=== PATIENT | female | born 1990 | race Caucasian/White ===

== ENCOUNTER 2025-07-30 07:44 | Inpatient (IN) ==
[2025-07-30] MEDS ORDERED: OXYTOCIN 30 UNITS/NSS 30 UNITS/500 ML BAG IV PRN (09:22)
[2025-07-30] MEDS ORDERED: ACETAMINOPHEN 500 MG TAB PO PRN (09:22)
[2025-07-30] MEDS ORDERED: CALCIUM CARBONATE 500 MG CHEWABLE TAB PO PRN (09:22)
[2025-07-30] MEDS ORDERED: LIDOCAINE 1% LOCAL 20 ML VIAL INFIL PRN (09:22)
--- NOTE | 2025-07-30 09:36 | History & Physical Report ---
Date of Service July 30, 2025 Assessment & Plan (1) Post-term , 40-42 weeks of gestation: Plan: 34-year-old -0-1-0 at 41 weeks of gestation presenting today for scheduled induction of labor for postdates, Vital signs stable afebrile, GBS negative, removed history of genital HSV, has been on Valtrex heart rate reassuring, Cervix favorable but Green less than 6, Plan to admit, monitor, labs, Cervidil for cervical ripening, discussed what to expect, All questions were answered. (2) Hypothyroidism affecting in third trimester: Admission and Anticipated Discharge Date Admission Date: July 30, 2025 History of Present Illness Primary Care Provider: NO PCP Patient is a 34-year-old -0-1-0 at 41 weeks of gestation who was scheduled for induction of labor for postdates. She has no complaints. She denies contractions, leakage of fluid, vaginal bleeding. She reports good movements. Her has been uncomplicated, GBS negative. She has a history of hypothyroidism and she takes levothyroxine for it. 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 Allergies Allergy/AdvReac Type Severity Reaction Status Date / Time No Known Allergies Allergy Unverified 10/07/11 16:27 Home Medications Medication Instructions Recorded Confirmed Type levothyroxine 50 mcg capsule 50 mcg PO DAILY 07/30/25 07/30/25 History vits no.124-ferrous fum 1 tab PO DAILY 07/30/25 07/30/25 History 27 mg iron-folic acid 800 mcg tablet ( Vitamin) Patient History Medical History Asthma Childhood Surgical History [place] teeth extracted History of tonsillectomy and adenoidectomy Family History Grandfather (Paternal) Myocardial infarction Grandmother (Maternal) Cancer Social History Smoking Status: Never smoker Hx Alcohol Use: No Hx Substance Use: No Preferred Language: Albanian Communication Ability: Effective Visual Impairment: No Limitations [employer] Required: No Beliefs That Will Affect Care: None marital status: Single marital status details: Carlos Perkins Current Living Situation Comment: Lives with Carlos current occupational status: employed current occupation: Teacher Other Information That Helps Us Care for You: No Feels Safe at Home: Yes Assistive Devices: None Review of Systems as per Subjective / HPI Physical Exam Constitutional: WD/WN, vitals as above well developed, well nourished and comfortable Genitourinary: normal external appearance OB Exam Abdomen: + vertex ( confirmed by bedside ultrasound) Manual OB Exam: + cervical dilation 2 cm, + cervical effacement 50% and + station high OB Exam Monitor Tracing: + external uterine monitor used and + category I bedside ultrasound, vertex, placenta anterior, heart rate 140s Results & Data Vital Signs (Past 12 Hours) Vital Signs Temp Pulse Resp BP 07/30/25 08:04 36.5 C 96 H 20 118/77 07/30/25 07:57 36.5 C 96 H 20 118/77
[2025-07-30] MEDS: DINOPROSTONE 10 MG INSERT PV ONE (10:04)
[2025-07-30 10:07] LABS: Hematocrit (blood only) 35.6 % (37.0-47.0); Hemoglobin 12.4 g/dl (12.0-16.0); Mean Corpuscular Hemoglobin 31.0 pg (25.0-34.0); Mean Corpuscular Volume 89.0 fL (80.0-100.0); Platelet Count 230 K/uL (130-400); RDW Standard Deviation 43.7 fL (36.4-46.3); Red Blood Count 4.00 M/uL (4.20-5.40); White Blood Count 10.56 K/ul (4.8-10.8)
[2025-07-30] MEDS: LACTATED RINGER'S 1,000 ML IV PRN (13:18)
--- NOTE | 2025-07-30 13:28 | Obstetrical Progress Note ---
Date of Service July 30, 2025 Assessment & Plan Admission and Anticipated Discharge Date Admission Date: July 30, 2025 Subjective patient had SROM at around 12 noon, confirmed by her nurse at 12:10 PM. It has been clear fluid. Patient started to have back pain radiating to her left lower abdomen. Not sure if they are contractions and pain are not. Pain level is 5-6 out of 10. She reports good movements. heart rate had been category 1, toco shows mild uterine contractions, Vaginal exam, Cervidil is removed, cervix is 3 to 4 cm dilated, 50%, there is a tight bulging bag, used hook to open, clear fluids, heart rate head deceleration to 70s while patient was in her back, recovered on her right side. Pulse OX was attached the patient and her pulse is around 70s, that might be a maternal heart rate. Continue to monitor closely, Start oxytocin per protocol, Patient plans to get epidural but not now, all questions were answered. Results & Data Vital Signs (Past 12 Hours) Vital Signs Temp Pulse Resp BP Pulse Ox 07/30/25 13:22 78 99 07/30/25 13:17 38 L 98 07/30/25 10:59 36.5 C 77 20 124/61 07/30/25 08:04 36.5 C 96 H 20 118/77 07/30/25 07:57 36.5 C 96 H 20 118/77
[2025-07-30] MEDS: OXYTOCIN 30 UNITS/NSS 30 UNITS/500 ML BAG IV PRN (14:38)
[2025-07-30] MEDS ORDERED: LIDOCAINE 2% MPF LOCAL 5 ML VIAL EPI PRN (15:47)
[2025-07-30] MEDS ORDERED: diphenhydrAMINE 50 MG/ML VIAL IV PRN (15:47)
[2025-07-30] MEDS ORDERED: ONDANSETRON INJ 2 MG/ML 2 ML VIAL IV PRN ×2 (15:47→23:20)
[2025-07-30] MEDS ORDERED: fentANYL 2 MCG/ML BUPIVacaine 0.125%-NSS 100ML BAG EPI PRN (15:47)
[2025-07-30] MEDS ORDERED: ROPIVACAINE 0.5% PF 5 MG/ML 20 ML VIAL EPI PRN (15:47)
[2025-07-30] MEDS ORDERED: NALBUPHINE HCL INJ 10 MG/ML AMP IV PRN (15:47)
[2025-07-30] MEDS ORDERED: NALOXONE HCL 1 MG in SODIUM CHLORIDE 0.9% 1,000 ML IV PRN ×2 (15:47→23:20)
[2025-07-30] MEDS ORDERED: NALOXONE HCL 0.4 MG/1 ML VIAL/CARP IV PRN ×2 (15:47→23:20)
[2025-07-30] MEDS ORDERED: SODIUM CHLORIDE 0.9% PF INJ 10 ML VIAL EPI PRN (15:47)
[2025-07-30] MEDS ORDERED: BUPIVACAINE 0.25% PF 30 ML VIAL EPI PRN (15:47)
--- NOTE | 2025-07-30 15:49 | Anesthesiology Consultation ---
Date of Service July 30, 2025 Assessment & Plan (1) Encounter for pre-operative examination: Chart Review Chart Review: Patient NOT seen in Pre Admission Testing and Acceptable Risk for Labor Epidural Consults Requested none History Height/Weight Height: 5 ft 5 in Weight: 98.43 kg Allergies Allergy/AdvReac Type Severity Reaction Status Date / Time No Known Allergies Allergy Unverified 10/07/11 16:27 Medications Home Medications Medication Instructions Recorded Confirmed Last Taken levothyroxine 50 mcg capsule 50 mcg PO DAILY 07/30/25 07/30/25 07/30/25 vits no.124-ferrous fum 1 tab PO DAILY 07/30/25 07/30/25 07/30/25 27 mg iron-folic acid 800 mcg tablet ( Vitamin) Active Medications Generic Name Dose Route Start Last Admin Trade Name Freq PRN Reason Stop Dose Admin Lactated Ringer's 1,000 mls @ 150 mls/hr 07/30/25 09:22 07/30/25 15:32 Lr IV 08/01/25 09:21 999 mls/hr .[id number] PRN Administration L&D Protocol Protocol Oxytocin 30 units in 500 mls @ 2 mls/hr 07/30/25 13:04 07/30/25 14:38 Pitocin 30 Units/Nss IV 08/01/25 13:03 0.12 units/hr .Q24H PRN 2 mls/hr Labor Induction/Augmentation Administration Protocol 0.12 UNITS/HR Past Medical History Medical History (Updated 07/30/25 @ 15:49 by Cristiano Madrigal MD) Encounter for pre-operative examination Asthma Childhood Past Family History Family History Grandfather (Paternal) Myocardial infarction Grandmother (Maternal) Cancer Past Surgical History Surgical History [place] teeth extracted History of tonsillectomy and adenoidectomy Past Anesthesia History No Hx of Anesthesia Complications and No Family Hx of Anesthesia Complications Social History Smoking Status: Never smoker Hx Alcohol Use: No Hx Substance Use: No Physical Exam Vital Signs Last Vital Signs Temp 36.8 C 07/30/25 15:19 Pulse 75 07/30/25 16:10 Resp 20 07/30/25 15:19 BP 129/69 07/30/25 16:10 Pulse Ox 100 07/30/25 16:08 Testing Laboratory Results 07/30/25 09:33 Blood Type O Positive 07/30/25 09:33 Antibody Screen NEGATIVE 07/30/25 09:33
[2025-07-30] MEDS: BUPIVACAINE 0.25% PF 30 ML VIAL ONE (16:12)
[2025-07-30] MEDS: LIDOCAINE 2%/EPINEPHRINE 1:200,000 20 ML PF ONE (16:13)
[2025-07-30] MEDS: fentANYL 2 MCG/ML BUPIVacaine 0.125%-NSS 100ML BAG ONE (16:14)
[2025-07-30] MEDS: SODIUM CHLORIDE 0.9% PF INJ 10 ML VIAL ONE (16:40)
[2025-07-30] MEDS: TERBUTALINE SULFATE 1 MG/ML VIAL ONE (17:47)
--- NOTE | 2025-07-30 17:54 | Obstetrical Progress Note ---
Date of Service July 30, 2025 Assessment & Plan Admission and Anticipated Discharge Date Admission Date: July 30, 2025 Subjective Patient received epidural and has been comfortable. heart rate had been category 1 all day with good accelerations and moderate variability, no decelerations. Had 2 variable decelerations and went to see her. We put her on her back and checked her cervix which was 6 to 7 cm, 70% effaced and head is -1 station. And we were able to place a Chavez catheter and heart rate had prolonged deceleration to the 70s. oxytocin was stopped, IV fluid bolus was started and nasal oxygen was given. We also get her single dose of terbutaline. Unable to recover on the sides, Chavez catheter was inserted and FSE was placed. We then turned her to her knee-chest and heart rate started to improve came up to 120s and 130s to 140s with good good variability and accelerations category 1. We then turned her back and I did bedside ultrasound confirmed a heart rate to be 140s. Chavez catheter draining 1000 mL of clear urine. I rechecked her cervix and it is 7 cm, 80%, head is 0 station. Anesthesiology was at the nursing station during this encounter. Continue to monitor closely. Results & Data Vital Signs (Past 12 Hours) Vital Signs Temp Pulse Resp BP Pulse Ox 07/30/25 17:49 85 108/58 L 07/30/25 17:48 71 98 07/30/25 17:40 77 87 L 07/30/25 17:38 66 100 07/30/25 17:33 71 100 07/30/25 17:32 71 91 07/30/25 17:28 60 96 07/30/25 17:26 58 L 92 07/30/25 17:25 75 107/56 L 07/30/25 17:23 89 99 07/30/25 17:21 72 94 07/30/25 17:18 75 98 07/30/25 17:13 78 97 07/30/25 17:10 75 106/53 L 07/30/25 17:08 67 99 07/30/25 17:03 67 97 07/30/25 17:00 20 07/30/25 17:00 20 07/30/25 16:58 64 100 07/30/25 16:53 66 98 07/30/25 16:51 36.8 C 67 20 101/55 L 07/30/25 16:48 65 98 07/30/25 16:47 67 81/51 L 07/30/25 16:43 69 96/49 L 99 07/30/25 16:38 68 98 07/30/25 16:37 72 114/57 L 07/30/25 16:33 72 98 07/30/25 16:30 72 99/55 L 07/30/25 16:28 98 07/30/25 16:28 74 07/30/25 16:28 92 H 101/64 07/30/25 16:26 96/53 L 07/30/25 16:24 85 96/51 L 07/30/25 16:23 78 97 07/30/25 16:22 93 H 107/61 07/30/25 16:20 80 98/56 L 07/30/25 16:18 99 07/30/25 16:18 83 07/30/25 16:18 85 94/53 L 07/30/25 16:16 77 101/58 L 07/30/25 16:14 82 94/50 L 07/30/25 16:13 77 99 07/30/25 16:12 81 102/53 L 07/30/25 16:10 75 129/69 07/30/25 16:08 68 100 07/30/25 16:07 71 123/90 07/30/25 16:03 70 99 07/30/25 16:02 70 146/82 H 07/30/25 15:58 67 100 07/30/25 15:55 78 88 L 07/30/25 15:53 71 100 07/30/25 15:48 53 L 99 07/30/25 15:43 70 97 07/30/25 15:38 66 98 07/30/25 15:33 67 99 07/30/25 15:28 59 L 98 07/30/25 15:23 62 99 07/30/25 15:19 36.8 C 70 20 119/75 07/30/25 15:18 68 100 07/30/25 15:03 67 97 07/30/25 14:58 65 98 07/30/25 14:53 68 98 07/30/25 14:48 70 98 07/30/25 14:43 68 98 07/30/25 14:41 36.8 C 65 20 140/75 07/30/25 14:38 69 98 07/30/25 14:32 68 98 07/30/25 14:27 64 99 07/30/25 14:22 66 98 07/30/25 14:17 69 98 07/30/25 14:12 64 99 07/30/25 14:07 62 98 07/30/25 14:02 69 99 07/30/25 13:57 72 100 07/30/25 13:42 71 97 07/30/25 13:37 63 98 07/30/25 13:33 72 94 07/30/25 13:32 64 98 07/30/25 13:27 65 99 07/30/25 13:25 18 07/30/25 13:25 36.8 C 18 07/30/25 13:22 78 99 07/30/25 13:17 38 L 98 07/30/25 10:59 36.5 C 77 20 124/61 07/30/25 08:04 36.5 C 96 H 20 118/77 07/30/25 07:57 36.5 C 96 H 20 118/77
[2025-07-30] MEDS: SODIUM CHLORIDE 0.9% PF INJ 10 ML VIAL EPI STA (18:12)
[2025-07-30] MEDS: BUPIVACAINE 0.25% PF 30 ML VIAL EPI STA (18:12)
[2025-07-30] MEDS: LIDOCAINE 2%/EPINEPHRINE 1:200,000 20 ML PF EPI STA (18:12)
--- NOTE | 2025-07-30 21:04 | Obstetrical Progress Note ---
Date of Service July 30, 2025 Assessment & Plan Admission and Anticipated Discharge Date Admission Date: July 30, 2025 Subjective FHR had patrick categ I Had deceleration to 70's for about 3-4 min with spontaneous recovery VE: 10/ 100%/ +2 Started pushing with contractions, FHR staying at 150's, scalp visible with pushings Continue to monitor closely Results & Data Vital Signs (Past 12 Hours) Vital Signs Temp Pulse Resp BP Pulse Ox 07/30/25 20:58 86 95 07/30/25 20:54 100 H 130/71 07/30/25 20:53 100 H 99 07/30/25 20:48 84 99 07/30/25 20:43 89 99 07/30/25 20:42 99 H 92 07/30/25 20:39 80 129/74 07/30/25 20:38 69 99 07/30/25 20:33 74 96 07/30/25 20:30 18 07/30/25 20:30 18 07/30/25 20:28 83 96 07/30/25 20:24 80 93 07/30/25 20:23 75 97 07/30/25 20:18 78 99 07/30/25 20:17 84 93 07/30/25 20:13 65 99 07/30/25 20:09 76 133/73 07/30/25 20:08 71 98 07/30/25 20:03 76 99 07/30/25 20:00 20 07/30/25 20:00 20 07/30/25 19:58 77 99 07/30/25 19:54 75 134/75 07/30/25 19:53 99 07/30/25 19:53 71 07/30/25 19:53 76 90 07/30/25 19:48 79 98 07/30/25 19:43 79 93 07/30/25 19:39 92 H 115/59 L 07/30/25 19:38 86 96 07/30/25 19:33 79 95 07/30/25 19:32 81 92 07/30/25 19:30 18 07/30/25 19:30 18 07/30/25 19:28 74 99 07/30/25 19:24 82 99/59 L 07/30/25 19:23 66 98 07/30/25 19:18 79 99 07/30/25 19:16 76 94 07/30/25 19:15 37.6 C H 18 07/30/25 19:13 92 H 94 07/30/25 19:08 94 H 99/54 L 98 07/30/25 19:03 83 98 07/30/25 19:02 89 94 07/30/25 19:00 18 07/30/25 19:00 37.6 C H 18 07/30/25 18:58 81 98 07/30/25 18:55 93 H 98/57 L 07/30/25 18:53 73 98 07/30/25 18:48 75 100 07/30/25 18:44 83 89 L 07/30/25 18:43 77 97 07/30/25 18:39 83 101/57 L 07/30/25 18:38 80 98 07/30/25 18:33 74 99 07/30/25 18:29 85 91 07/30/25 18:28 72 99 07/30/25 18:24 88 20 102/58 L 07/30/25 18:23 77 98 07/30/25 18:18 88 L 07/30/25 18:18 75 07/30/25 18:18 76 93 07/30/25 18:13 88 98 07/30/25 18:09 83 20 105/58 L 07/30/25 18:08 72 100 07/30/25 18:04 76 94 07/30/25 18:03 74 97 07/30/25 17:58 79 94 07/30/25 17:54 81 20 103/56 L 07/30/25 17:53 85 100 07/30/25 17:49 85 108/58 L 07/30/25 17:48 71 98 07/30/25 17:40 77 87 L 07/30/25 17:38 66 100 07/30/25 17:33 71 100 07/30/25 17:32 71 91 07/30/25 17:28 60 96 07/30/25 17:26 58 L 92 07/30/25 17:25 75 18 107/56 L 07/30/25 17:23 89 99 07/30/25 17:21 72 94 07/30/25 17:18 75 98 07/30/25 17:13 78 97 07/30/25 17:10 75 106/53 L 07/30/25 17:08 67 99 07/30/25 17:03 67 97 07/30/25 17:00 20 07/30/25 17:00 20 07/30/25 16:58 64 100 07/30/25 16:53 66 98 07/30/25 16:51 36.8 C 67 20 101/55 L 07/30/25 16:48 65 98 07/30/25 16:47 67 18 81/51 L 07/30/25 16:43 69 96/49 L 99 07/30/25 16:38 68 98 07/30/25 16:37 72 18 114/57 L 07/30/25 16:33 72 98 07/30/25 16:30 72 18 99/55 L 07/30/25 16:28 98 07/30/25 16:28 74 07/30/25 16:28 92 H 18 101/64 07/30/25 16:26 96/53 L 07/30/25 16:24 85 18 96/51 L 07/30/25 16:23 78 97 07/30/25 16:22 93 H 18 107/61 07/30/25 16:20 80 18 98/56 L 07/30/25 16:18 99 07/30/25 16:18 83 07/30/25 16:18 85 18 94/53 L 07/30/25 16:16 77 18 101/58 L 07/30/25 16:14 82 18 94/50 L 07/30/25 16:13 77 99 07/30/25 16:12 81 102/53 L 07/30/25 16:10 75 129/69 07/30/25 16:08 68 100 07/30/25 16:07 71 123/90 07/30/25 16:03 70 99 07/30/25 16:02 70 146/82 H 07/30/25 15:58 67 100 07/30/25 15:55 78 88 L 07/30/25 15:53 71 100 07/30/25 15:48 53 L 99 07/30/25 15:43 70 97 07/30/25 15:38 66 98 07/30/25 15:33 67 99 07/30/25 15:28 59 L 98 07/30/25 15:23 62 99 07/30/25 15:19 36.8 C 70 20 119/75 07/30/25 15:18 68 100 07/30/25 15:03 67 97 07/30/25 14:58 65 98 07/30/25 14:53 68 98 07/30/25 14:48 70 98 07/30/25 14:43 68 98 07/30/25 14:41 36.8 C 65 20 140/75 07/30/25 14:38 69 98 07/30/25 14:32 68 98 07/30/25 14:27 64 99 07/30/25 14:22 66 98 07/30/25 14:17 69 98 07/30/25 14:12 64 99 07/30/25 14:07 62 98 07/30/25 14:02 69 99 07/30/25 13:57 72 100 07/30/25 13:42 71 97 07/30/25 13:37 63 98 07/30/25 13:33 72 94 07/30/25 13:32 64 98 07/30/25 13:27 65 99 07/30/25 13:25 18 07/30/25 13:25 36.8 C 18 07/30/25 13:22 78 99 07/30/25 13:17 38 L 98 07/30/25 10:59 36.5 C 77 20 124/61
[2025-07-30] MEDS ORDERED: DEXAMETHASONE SOD INJ 4 MG/ML VIAL ONE (22:33)
[2025-07-30] MEDS ORDERED: PHENYLEPHRINE 100MCG/ML 5ML SYR ONE (22:33)
[2025-07-30] MEDS ORDERED: ONDANSETRON INJ 2 MG/ML 2 ML VIAL ONE (22:33)
[2025-07-30] MEDS ORDERED: PHENYLEPHRINE HCL 25 MG/250 ML NSS IV ONE (22:33)
[2025-07-30] MEDS ORDERED: LIDOCAINE 2%/EPINEPHRINE 1:200,000 20 ML PF ONE (22:33)
--- NOTE | 2025-07-30 22:36 | Obstetrical Progress Note ---
Date of Service July 30, 2025 Assessment & Plan Admission and Anticipated Discharge Date Admission Date: July 30, 2025 Subjective patient has been pushing for about 1/2 hours. She wanted to avoid unless it is absolutely needed. heart rate reviewed and category 1 to category 2. We put the patient on knee-chest position and heart rate was category 1 there she pushed her for about half an hour and then turned on to her back. head distillates +2 station with no change. Started having variable D cells with each contractions now more deeper. Category 2 strip. Recommended delivery with . Patient understands C section is a major surgery, with risks including but not limited to bleeding , infection, injury to surrounding organs like bowels, bladder, ureters, adhesions, scarring, wound infection, blood cloths in legs/ lungs, longer recovery. All questions were answered. She signed an informed consent. Results & Data Vital Signs (Past 12 Hours) Vital Signs Temp Pulse Resp BP Pulse Ox 07/30/25 22:31 92 H 100 07/30/25 22:26 89 100 07/30/25 22:21 88 L 07/30/25 22:21 99 H 07/30/25 22:21 99 H 88 L 07/30/25 22:16 107 H 98 07/30/25 22:11 79 100 07/30/25 22:10 70 93 07/30/25 22:05 89 99 07/30/25 22:03 88 89 L 07/30/25 22:00 71 100 07/30/25 21:55 75 100 07/30/25 21:52 70 93 07/30/25 21:50 80 100 07/30/25 21:47 86 80 L 07/30/25 21:45 84 98 07/30/25 21:41 75 92 07/30/25 21:40 89 100 07/30/25 21:33 55 L 99 07/30/25 21:32 70 91 07/30/25 21:28 80 96 07/30/25 21:25 72 115/56 L 92 07/30/25 21:23 74 98 07/30/25 21:19 74 93 07/30/25 21:18 74 96 07/30/25 21:13 72 100 07/30/25 21:10 82 92 07/30/25 21:09 83 112/56 L 07/30/25 21:08 74 99 07/30/25 21:05 22 07/30/25 21:05 22 07/30/25 21:04 71 91 07/30/25 21:03 75 99 07/30/25 20:58 86 95 07/30/25 20:54 100 H 130/71 07/30/25 20:53 100 H 99 07/30/25 20:48 84 99 07/30/25 20:43 89 99 07/30/25 20:42 99 H 92 07/30/25 20:39 80 129/74 07/30/25 20:38 69 99 07/30/25 20:33 74 96 07/30/25 20:30 18 07/30/25 20:30 18 07/30/25 20:28 83 96 07/30/25 20:24 80 93 07/30/25 20:23 75 97 07/30/25 20:18 78 99 07/30/25 20:17 84 93 07/30/25 20:13 65 99 07/30/25 20:09 76 133/73 07/30/25 20:08 71 98 07/30/25 20:03 76 99 07/30/25 20:00 20 07/30/25 20:00 20 07/30/25 19:58 77 99 07/30/25 19:54 75 134/75 07/30/25 19:53 99 07/30/25 19:53 71 07/30/25 19:53 76 90 07/30/25 19:48 79 98 07/30/25 19:43 79 93 07/30/25 19:39 92 H 115/59 L 07/30/25 19:38 86 96 07/30/25 19:33 79 95 07/30/25 19:32 81 92 07/30/25 19:30 18 07/30/25 19:30 18 07/30/25 19:28 74 99 07/30/25 19:24 82 99/59 L 07/30/25 19:23 66 98 07/30/25 19:18 79 99 07/30/25 19:16 76 94 07/30/25 19:15 37.6 C H 18 07/30/25 19:13 92 H 94 07/30/25 19:08 94 H 99/54 L 98 07/30/25 19:03 83 98 07/30/25 19:02 89 94 07/30/25 19:00 18 07/30/25 19:00 37.6 C H 18 07/30/25 18:58 81 98 07/30/25 18:55 93 H 98/57 L 07/30/25 18:53 73 98 07/30/25 18:48 75 100 07/30/25 18:44 83 89 L 07/30/25 18:43 77 97 07/30/25 18:39 83 101/57 L 07/30/25 18:38 80 98 07/30/25 18:33 74 99 07/30/25 18:29 85 91 07/30/25 18:28 72 99 07/30/25 18:24 88 20 102/58 L 07/30/25 18:23 77 98 07/30/25 18:18 88 L 07/30/25 18:18 75 07/30/25 18:18 76 93 07/30/25 18:13 88 98 07/30/25 18:09 83 20 105/58 L 07/30/25 18:08 72 100 07/30/25 18:04 76 94 07/30/25 18:03 74 97 07/30/25 17:58 79 94 07/30/25 17:54 81 20 103/56 L 07/30/25 17:53 85 100 07/30/25 17:49 85 108/58 L 07/30/25 17:48 71 98 07/30/25 17:40 77 87 L 07/30/25 17:38 66 100 07/30/25 17:33 71 100 07/30/25 17:32 71 91 07/30/25 17:28 60 96 07/30/25 17:26 58 L 92 07/30/25 17:25 75 18 107/56 L 07/30/25 17:23 89 99 07/30/25 17:21 72 94 07/30/25 17:18 75 98 07/30/25 17:13 78 97 07/30/25 17:10 75 106/53 L 07/30/25 17:08 67 99 07/30/25 17:03 67 97 07/30/25 17:00 20 07/30/25 17:00 20 07/30/25 16:58 64 100 07/30/25 16:53 66 98 07/30/25 16:51 36.8 C 67 20 101/55 L 07/30/25 16:48 65 98 07/30/25 16:47 67 18 81/51 L 07/30/25 16:43 69 96/49 L 99 07/30/25 16:38 68 98 07/30/25 16:37 72 18 114/57 L 07/30/25 16:33 72 98 07/30/25 16:30 72 18 99/55 L 07/30/25 16:28 98 07/30/25 16:28 74 07/30/25 16:28 92 H 18 101/64 07/30/25 16:26 96/53 L 07/30/25 16:24 85 18 96/51 L 07/30/25 16:23 78 97 07/30/25 16:22 93 H 18 107/61 07/30/25 16:20 80 18 98/56 L 07/30/25 16:18 99 07/30/25 16:18 83 07/30/25 16:18 85 18 94/53 L 07/30/25 16:16 77 18 101/58 L 07/30/25 16:14 82 18 94/50 L 07/30/25 16:13 77 99 07/30/25 16:12 81 102/53 L 07/30/25 16:10 75 129/69 07/30/25 16:08 68 100 07/30/25 16:07 71 123/90 07/30/25 16:03 70 99 07/30/25 16:02 70 146/82 H 07/30/25 15:58 67 100 07/30/25 15:55 78 88 L 07/30/25 15:53 71 100 07/30/25 15:48 53 L 99 07/30/25 15:43 70 97 07/30/25 15:38 66 98 07/30/25 15:33 67 99 07/30/25 15:28 59 L 98 07/30/25 15:23 62 99 07/30/25 15:19 36.8 C 70 20 119/75 07/30/25 15:18 68 100 07/30/25 15:03 67 97 07/30/25 14:58 65 98 07/30/25 14:53 68 98 07/30/25 14:48 70 98 07/30/25 14:43 68 98 07/30/25 14:41 36.8 C 65 20 140/75 07/30/25 14:38 69 98 07/30/25 14:32 68 98 07/30/25 14:27 64 99 07/30/25 14:22 66 98 07/30/25 14:17 69 98 07/30/25 14:12 64 99 07/30/25 14:07 62 98 07/30/25 14:02 69 99 07/30/25 13:57 72 100 07/30/25 13:42 71 97 07/30/25 13:37 63 98 07/30/25 13:33 72 94 07/30/25 13:32 64 98 07/30/25 13:27 65 99 07/30/25 13:25 18 07/30/25 13:25 36.8 C 18 07/30/25 13:22 78 99 07/30/25 13:17 38 L 98 07/30/25 10:59 36.5 C 77 20 124/61
[2025-07-30] MEDS ORDERED: MoRPHine SULFATE PF 1 MG/ML 10 ML AMP/VIAL ONE (22:38)
[2025-07-30] MEDS: CITRIC ACID/SODIUM CITRATE 15 ML UDC PO SCH (22:43)
[2025-07-30] MEDS: ceFAZolin 3000MG 3,000 MG/72.5 ML BAG IV SCH (22:45)
[2025-07-30] MEDS: TERBUTALINE SULFATE 1 MG/ML VIAL SQ ONE (22:45)
[2025-07-30] MEDS ORDERED: LACTATED RINGER'S 500 ML IV PRN (23:20)
[2025-07-30] MEDS ORDERED: HYDROmorphone INJ 0.5 MG/0.5 ML SYR IV PRN (23:20)
[2025-07-30] MEDS ORDERED: PROMETHAZINE 6.25 MG/50.25 ML BAG IV PRN (23:20)
[2025-07-30] MEDS ORDERED: NALOXONE HCL 0.08 MG in SYRINGE 1.8 ML IV PRN (23:20)
[2025-07-30 23:30] LABS: Hematocrit (blood only) 36.1 % (37.0-47.0); Hemoglobin 12.7 g/dl (12.0-16.0); Mean Corpuscular Hemoglobin 31.4 pg (25.0-34.0); Mean Corpuscular Volume 89.4 fL (80.0-100.0); Platelet Count 244 K/uL (130-400); RDW Standard Deviation 43.7 fL (36.4-46.3); Red Blood Count 4.04 M/uL (4.20-5.40); White Blood Count 21.34 K/ul (4.8-10.8)
[2025-07-30] MEDS ORDERED: NO NARCOTICS OR SEDATIVES SCH (23:30)
[2025-07-30] MEDS ORDERED: DC INTRASPINAL MORPHINE SCH (23:30)
[2025-07-30] MEDS ORDERED: LACTATED RINGER'S 1,000 ML IV SCH (23:45)
[2025-07-31] MEDS ORDERED: MEASLES, MUMPS & RUBELLA VIRUS VACCINE (MMR) 0.5ML VIAL SQ ONE (00:04)
[2025-07-31] MEDS ORDERED: BENZOCAINE 20% SPRY 85 APPLN/85 GM CAN EXT PRN (00:04)
[2025-07-31] MEDS ORDERED: HYDROCORTISONE ACETATE 25 MG SUPP PR PRN (00:04)
[2025-07-31] MEDS ORDERED: CALCIUM CARBONATE 500 MG CHEWABLE TAB PO PRN (00:04)
[2025-07-31] MEDS ORDERED: SENNA 8.6 MG TAB PO PRN (00:04)
[2025-07-31] MEDS ORDERED: MAGNESIUM HYDROXIDE SUSP 30 ML UDC PO PRN (00:04)
[2025-07-31] MEDS ORDERED: DIPHTHER/TETAN/PERTUS Vaccine (Tdap, Adol/Adult) 0.5mL IM ONE (00:04)
--- NOTE | 2025-07-31 00:10 | Operative Report ---
Post Operative Report Pre & Post Diagnosis Operation Date: 07/30/25 22:45 Preop diagnosis: 1) arrest of descent in second phase of labor, 2) category 2 strip I identified the patient and participated in the time-out.: Yes Procedure Operation Date: 07/30/25 22:45 for primary low-transverse with financial skin incision Surgeon Cony Miller MD Bank Consultant Irene Sweeney RN Estimated Blood Loss 389 Findings Consistent with Post-Op Diagnosis Baby was a viable male , delivered at 23:03 on July 30, 2025 and cephalic presentAtion, direct occiput posterior position, Apgars 9 and 9, weight was 3510 g maternal findings, normal uterus, fallopian tubes and ovaries Specimens placenta, cord Drains Chavez catheter drained 50 mL urine Anesthesia Type Labor Epidural Complications none Indications patient is a 34-year-old G2, P0010 at 41 weeks of gestation who was admitted on July 30 morning for induction of labor for postdates. She has received Cervidil for cervical ripening and SROM at noon. Cervidil was removed and she was started on oxytocin per protocol. She has not received epidural for pain and was comfortable. heart rate was category 1 and then had a prolonged deceleration in the afternoon when her cervix was 6-7 cm, head was -1 station. It was recovered with position changes IV fluid hydration and stopping Pitocin. heart rate had been category 1 after that until patient started pushing. Started to have deep variable decelerations, category 2 strip removed from delivery. Despite pushing with good efforts for about 1-1/2 hour, no progress was noted in head Station. Decision was made to proceed with primary C- section. Description of Procedure Patient was taken to operating room where labor epidural anesthesia was check to be adequate. She was placed in dorsal supine position with a leftward tilt. She was prepared and draped in usual sterile fashion. A Pfannenstiel skin incision was made and carried through to the underlying layer of fascia with the Bovie. Fascia was incised in the midline and incision was extended laterally with the help of Bobo scissors. Then the upper aspect of the fascial incision was grasped with 2 Ar clamps elevated the underlying rectus muscles were dissected off sharply with Bobo scissors. Same thing was done on the lower incision. Then the muscles were in the midline, peritoneum was identified grasped with 2 pickups and entered sharply with Metzenbaum scissors. Peritoneal incision was extended superior and inferiorly with good visualization of the bladder. The bladder blade was inserted. Vesicouterine peritoneum was identified, grasped with pickups and entered sharply with Metzenbaum scissors, bladder flap was created digitally and bladder blade was reinserted. Uterus was incised in transverse fashion, incision was extended laterally, membranes were ruptured and clear fluid was obtained. baby's head was in direct occipitoposterior position. Baby's head was Brought to incision and delivered without difficulty, followed by shoulders and body with minimal traction without difficulty. Mouth and nose were suctioned, he was dried on the field he was vigorously crying and moving. The cord was clampedx2 and cut at 1 minute delay and then the was handed off to the pediatric team. Then the placenta was delivered manually as intact and complete. Uterus was externalized and cleared of all clots and debris's. Uterine incision was repaired with 0 Vicryl in a running locked fashion, second umbricating layer was placed with the same suture in running locked fashion. Excellent hemostasis achieved. Cul-de-sac and the pelvis was irrigated with warm normal saline and suctioned. Incision was checked of anesthetic again. Uterus was returned to the abdomen, parietal peritoneum was reapproximated with 3-0 Vicryl in a running fashion and the muscles were reapproximated in the same suture in a running fashion. All of the fascia and rectus muscles were hemostatic. Rectus fascia was reapproximated with 0 Vicryl starting from both columns meeting in the midline. Subcuticular fat tissue was brought together with 2-0 Vicryl in a running fa shion, skin was closed with 4-0 Monocryl in a subcuticular cuticular fashion. The mom and baby tolerated procedure well. Sponge needle instrument count was correct x3. she was given 3 g of cefazolin before and 500 mg of azithromycin during surgery. No complications happened, I was present during whole procedure. My server assistant was needed for retraction, hemostasis and aid during delivery of infant I attest to the content of the Intraoperative Record and any orders documented therein. Any exceptions are noted below.
--- NOTE | 2025-07-31 00:10 | Anesthesia Procedure Note ---
Date of Service July 31, 2025 Anesthesia Post Epidural Note Vital Signs Vital Signs: Temp Pulse Resp BP Pulse Ox 37.6 C H 81 22 104/53 L 90 07/30/25 19:15 07/31/25 00:09 07/30/25 21:05 07/30/25 23:59 07/31/25 00:09 Notes Mental Status: alert / awake / arousable and participated in evaluation Patient Amnestic to Procedure: No Nausea / Vomiting: adequately controlled Pain: adequately controlled Airway Patency, RR, SpO2: stable & adequate BP & HR: stable & adequate Hydration State: stable & adequate Neuraxial Anesthesia: was administered and sensory block is resolving Anesthetic Complications: no major complications apparent and Pt Satisfied with anesthetic care Epidural: Removed without complications and With tip intact
--- NOTE | 2025-07-31 00:11 | Anesthesiology Progress Note ---
Date of Service July 31, 2025 Anesthesia Post Procedure Vital Signs Vital Signs: Temp Pulse Resp BP Pulse Ox 07/31/25 00:09 81 90 07/31/25 00:08 81 93 07/31/25 00:03 71 98 07/30/25 23:59 73 104/53 L 07/30/25 23:58 75 100 07/30/25 22:46 76 96 07/30/25 22:45 72 93 07/30/25 22:41 87 96 07/30/25 22:40 90 93 07/30/25 22:37 77 106/58 L 07/30/25 22:36 91 H 96 07/30/25 22:31 92 H 100 07/30/25 22:26 89 100 07/30/25 22:21 88 L 07/30/25 22:21 99 H 07/30/25 22:21 99 H 88 L 07/30/25 22:16 107 H 98 07/30/25 22:11 79 100 07/30/25 22:10 70 93 07/30/25 22:05 89 99 07/30/25 22:03 88 89 L 07/30/25 22:00 71 100 07/30/25 21:55 75 100 07/30/25 21:52 70 93 07/30/25 21:50 80 100 07/30/25 21:47 86 80 L 07/30/25 21:45 84 98 07/30/25 21:41 75 92 07/30/25 21:40 89 100 07/30/25 21:33 55 L 99 07/30/25 21:32 70 91 07/30/25 21:28 80 96 07/30/25 21:25 72 115/56 L 92 07/30/25 21:23 74 98 07/30/25 21:19 74 93 07/30/25 21:18 74 96 07/30/25 21:13 72 100 07/30/25 21:10 82 92 07/30/25 21:09 83 112/56 L 07/30/25 21:08 74 99 07/30/25 21:05 22 07/30/25 21:05 22 07/30/25 21:04 71 91 07/30/25 21:03 75 99 07/30/25 20:58 86 95 07/30/25 20:54 100 H 130/71 07/30/25 20:53 100 H 99 07/30/25 20:48 84 99 07/30/25 20:43 89 99 07/30/25 20:42 99 H 92 07/30/25 20:39 80 129/74 07/30/25 20:38 69 99 07/30/25 20:33 74 96 07/30/25 20:30 18 07/30/25 20:30 18 07/30/25 20:28 83 96 07/30/25 20:24 80 93 07/30/25 20:23 75 97 07/30/25 20:18 78 99 07/30/25 20:17 84 93 07/30/25 20:13 65 99 07/30/25 20:09 76 133/73 07/30/25 20:08 71 98 07/30/25 20:03 76 99 07/30/25 20:00 20 07/30/25 20:00 20 07/30/25 19:58 77 99 07/30/25 19:54 75 134/75 07/30/25 19:53 99 07/30/25 19:53 71 07/30/25 19:53 76 90 07/30/25 19:48 79 98 07/30/25 19:43 79 93 07/30/25 19:39 92 H 115/59 L 07/30/25 19:38 86 96 07/30/25 19:33 79 95 07/30/25 19:32 81 92 07/30/25 19:30 18 07/30/25 19:30 18 07/30/25 19:28 74 99 07/30/25 19:24 82 99/59 L 07/30/25 19:23 66 98 07/30/25 19:18 79 99 07/30/25 19:16 76 94 07/30/25 19:15 37.6 C H 18 07/30/25 19:13 92 H 94 07/30/25 19:08 94 H 99/54 L 98 07/30/25 19:03 83 98 07/30/25 19:02 89 94 07/30/25 19:00 18 07/30/25 19:00 37.6 C H 18 07/30/25 18:58 81 98 07/30/25 18:55 93 H 98/57 L 07/30/25 18:53 73 98 11/04/25 18:48 75 100 07/30/25 18:44 83 89 L 07/30/25 18:43 77 97 07/30/25 18:39 83 101/57 L 07/30/25 18:38 80 98 07/30/25 18:33 74 99 07/30/25 18:29 85 91 07/30/25 18:28 72 99 07/30/25 18:24 88 20 102/58 L 07/30/25 18:23 77 98 07/30/25 18:18 88 L 07/30/25 18:18 75 07/30/25 18:18 76 93 07/30/25 18:13 88 98 07/30/25 18:09 83 20 105/58 L 07/30/25 18:08 72 100 07/30/25 18:04 76 94 07/30/25 18:03 74 97 07/30/25 17:58 79 94 07/30/25 17:54 81 20 103/56 L 07/30/25 17:53 85 100 07/30/25 17:49 85 108/58 L 07/30/25 17:48 71 98 07/30/25 17:40 77 87 L 07/30/25 17:38 66 100 07/30/25 17:33 71 100 07/30/25 17:32 71 91 07/30/25 17:28 60 96 07/30/25 17:26 58 L 92 07/30/25 17:25 75 18 107/56 L 07/30/25 17:23 89 99 07/30/25 17:21 72 94 07/30/25 17:18 75 98 07/30/25 17:13 78 97 07/30/25 17:10 75 106/53 L 07/30/25 17:08 67 99 07/30/25 17:03 67 97 07/30/25 17:00 20 07/30/25 17:00 20 07/30/25 16:58 64 100 07/30/25 16:53 66 98 07/30/25 16:51 36.8 C 67 20 101/55 L 07/30/25 16:48 65 98 07/30/25 16:47 67 18 81/51 L 07/30/25 16:43 69 96/49 L 99 07/30/25 16:38 68 98 07/30/25 16:37 72 18 114/57 L 07/30/25 16:33 72 98 07/30/25 16:30 72 18 99/55 L 07/30/25 16:28 98 07/30/25 16:28 74 07/30/25 16:28 92 H 18 101/64 07/30/25 16:26 96/53 L 07/30/25 16:24 85 18 96/51 L 07/30/25 16:23 78 97 07/30/25 16:22 93 H 18 107/61 07/30/25 16:20 80 18 98/56 L 07/30/25 16:18 99 07/30/25 16:18 83 07/30/25 16:18 85 18 94/53 L 07/30/25 16:16 77 18 101/58 L 07/30/25 16:14 82 18 94/50 L 07/30/25 16:13 77 99 07/30/25 16:12 81 102/53 L 07/30/25 16:10 75 129/69 07/30/25 16:08 68 100 07/30/25 16:07 71 123/90 07/30/25 16:03 70 99 07/30/25 16:02 70 146/82 H 07/30/25 15:58 67 100 07/30/25 15:55 78 88 L 07/30/25 15:53 71 100 07/30/25 15:48 53 L 99 07/30/25 15:43 70 97 07/30/25 15:38 66 98 07/30/25 15:33 67 99 07/30/25 15:28 59 L 98 07/30/25 15:23 62 99 07/30/25 15:19 36.8 C 70 20 119/75 07/30/25 15:18 68 100 07/30/25 15:03 67 97 07/30/25 14:58 65 98 07/30/25 14:53 68 98 07/30/25 14:48 70 98 07/30/25 14:43 68 98 07/30/25 14:41 36.8 C 65 20 140/75 07/30/25 14:38 69 98 07/30/25 14:32 68 98 07/30/25 14:27 64 99 07/30/25 14:22 66 98 07/30/25 14:17 69 98 07/30/25 14:12 64 99 07/30/25 14:07 62 98 07/30/25 14:02 69 99 07/30/25 13:57 72 100 07/30/25 13:42 71 97 07/30/25 13:37 63 98 07/30/25 13:33 72 94 07/30/25 13:32 64 98 07/30/25 13:27 65 99 07/30/25 13:25 18 07/30/25 13:25 36.8 C 18 07/30/25 13:22 78 99 07/30/25 13:17 38 L 98 07/30/25 10:59 36.5 C 77 20 124/61 07/30/25 08:04 36.5 C 96 H 20 118/77 07/30/25 07:57 36.5 C 96 H 20 118/77 Transfer of Care Handoff Completed per policy Notes Mental Status: alert / awake / arousable and participated in evaluation Patient Amnestic to Procedure: No Nausea / Vomiting: adequately controlled Pain: adequately controlled Airway Patency, RR, SpO2: stable & adequate BP & HR: stable & adequate Hydration State: stable & adequate Neuraxial Anesthesia: was administered and sensory block is resolving Anesthetic Complications: no major complications apparent and Pt Satisfied with anesthetic care
[2025-07-31] MEDS ORDERED: LACTATED RINGER'S 1,000 ML IV SCH (00:15)
[2025-07-31] MEDS: ACETAMINOPHEN 500 MG TAB PO SCH (00:35)
[2025-07-31] MEDS: LACTATED RINGER'S 1,000 ML IV SCH (00:37)
[2025-07-31] MEDS: AZITHROMYCIN 500 MG/255 ML BAG IV SCH (00:37)
[2025-07-31] MEDS: KETOROLAC 30 MG/ML VIAL IV SCH (00:54)
[2025-07-31] MEDS: OXYTOCIN 20 UNITS/LR 1,002 ML IV SCH (01:00)
[2025-07-31] MEDS: MoRPHine SULFATE PF 1 MG/ML 10 ML AMP/VIAL EPI ONE (01:41)
[2025-07-31] MEDS: SODIUM CHLORIDE 0.9% 1,000 ML IV SCH (01:41)
[2025-07-31] MEDS: diphenhydrAMINE 50 MG/ML VIAL IV PRN (02:46)
[2025-07-31] MEDS: NALBUPHINE HCL INJ 10 MG/ML AMP IV PRN (04:33)
[2025-07-31] MEDS ORDERED: TERBUTALINE SULFATE 1 MG/ML VIAL ONE (05:27)
[2025-07-31] MEDS: SIMETHICONE 80 MG CHEW PO SCH (06:03)
[2025-07-31] MEDS: ACETAMINOPHEN 325 MG TAB PO SCH (06:03)
[2025-07-31] MEDS: PRENATAL VITAMIN 1 TAB PO SCH (08:34)
[2025-07-31] MEDS: DOCUSATE SODIUM 100 MG CAP PO SCH (08:34)
[2025-07-31] MEDS: FERROUS SULFATE 325 MG TAB PO SCH (08:35)
[2025-07-31] MEDS: AMOXICILLIN/CLAVULANATE 875 MG TAB PO SCH ×2 (10:01→18:23)
[2025-07-31] MEDS ORDERED: Nursing to Pharmacy Communication SCH (10:30)
--- NOTE | 2025-07-31 14:58 | Obstetrical Progress Note ---
Date of Service July 31, 2025 Assessment & Plan Admission and Anticipated Discharge Date Admission Date: July 30, 2025 Subjective abdomen soft and non tender bowel sounds hypoactive incision is clean and dry no calf tenderness ambulating well vaginal bleeding scant hgb 12.7 Results & Data Vital Signs (Past 12 Hours) Vital Signs Temp Pulse Resp BP Pulse Ox Pulse Ox O2 Del Method 07/31/25 11:00 16 94 07/31/25 10:00 18 96 07/31/25 09:00 16 93 07/31/25 08:25 Room Air 07/31/25 08:25 36.7 C 69 18 108/58 L 95 Room Air 07/31/25 08:25 95 07/31/25 08:10 18 95 07/31/25 07:10 18 96 07/31/25 06:10 16 96 07/31/25 05:00 18 94 07/31/25 04:00 18 96 07/31/25 03:05 37.1 C 74 18 127/76 95 Room Air 07/31/25 03:05 18 95 O2 Del Method 07/31/25 11:00 07/31/25 10:00 07/31/25 09:00 07/31/25 08:25 07/31/25 08:25 07/31/25 08:25 Room Air 07/31/25 08:10 07/31/25 07:10 07/31/25 06:10 07/31/25 05:00 07/31/25 04:00 07/31/25 03:05 07/31/25 03:05
[2025-07-31] MEDS ORDERED: HYDROmorphone INJ 0.5 MG/0.5 ML SYR IV PRN (17:20)
[2025-07-31] MEDS ORDERED: PROMETHAZINE 12.5 MG/50.5 ML BAG IV PRN (17:20)
[2025-07-31] MEDS ORDERED: diphenhydrAMINE Capsule 25 MG CAP PO PRN (17:20)
[2025-07-31] MEDS ORDERED: ONDANSETRON INJ 2 MG/ML 2 ML VIAL IV PRN (17:20)
[2025-07-31] MEDS ORDERED: diphenhydrAMINE 50 MG/ML VIAL IV PRN (17:20)
[2025-08-01] MEDS ORDERED: KETOROLAC 30 MG/ML VIAL IV PRN (00:04)
[2025-08-01] MEDS: IBUPROFEN 600 MG TAB PO SCH (00:47)
[2025-08-01 07:01] LABS: Hematocrit (blood only) 28.8 % (37.0-47.0); Hemoglobin 10.0 g/dl (12.0-16.0); Immature Granulocytes # (auto) 0.05 K/uL (0.01-0.20); Immature Granulocytes % (auto) 0.3 %; Mean Corpuscular Hemoglobin 32.2 pg (25.0-34.0); Mean Corpuscular Volume 92.6 fL (80.0-100.0); Platelet Count 174 K/uL (130-400); RDW Standard Deviation 47.6 fL (36.4-46.3); Red Blood Count 3.11 M/uL (4.20-5.40); White Blood Count 14.95 K/ul (4.8-10.8)
--- NOTE | 2025-08-01 08:41 | Obstetrical Progress Note ---
Date of Service August 01, 2025 Assessment & Plan Admission and Anticipated Discharge Date Admission Date: July 30, 2025 Subjective Patient is seen and examined. She feels well, no complaints. Pain is under control with oral meds. Ambulating without dizziness Voiding without difficulty Tolerating regular diet with out N&V Flatus + BM neg Bleeding is minimal No fever/ chills/ CP/ SOB/ N&V/ Leg pain Bottle feeding without problems Vital Signs Temp Pulse Resp BP Pulse Ox O2 Del Method 08/01/25 03:09 36.9 C 63 18 97/58 L 99 Room Air Lab Results 07/30/25 07/30/25 08/01/25 Range/Units 09:33 22:39 06:14 WBC 10.56 21.34 H D 14.95 H (4.8-10.8) K/ul RBC 4.00 L 4.04 L 3.11 L (4.20-5.40) M/uL Hgb 12.4 12.7 10.0 L (12.0-16.0) g/dl Hct 35.6 L 36.1 L 28.8 L (37.0-47.0) % MCV 89.0 89.4 92.6 (80.0-100.0) fL MCH 31.0 31.4 32.2 (25.0-34.0) pg MCHC 34.8 35.2 34.7 (32.0-36.0) g/dL RDW Std Deviation 43.7 43.7 47.6 H (36.4-46.3) fL RDW Coeff of Remedios 13.4 13.4 14.1 (11.5-14.5) % Plt Count 230 244 174 (130-400) K/uL MPV 10.8 10.6 11.1 (9.4-12.4) fL Immature Gran % (Auto) 0.3 % Neut % (Auto) 77.8 % Lymph % (Auto) 16.5 % [place] % (Auto) 5.0 % Eos % (Auto) 0.3 % Baso % (Auto) 0.1 % Neut # (Auto) 11.64 H (1.40-6.50) K/uL Lymph # (Auto) 2.46 (1.20-3.40) K/uL [place] # (Auto) 0.75 H (0.11-0.59) K/uL Eos # (Auto) 0.04 (0.00-0.50) K/uL Baso # (Auto) 0.01 (0.00-0.20) K/uL Immature Gran # (Auto) 0.05 (0.01-0.20) K/uL Treponema pallidum Ab Negative Negative (Negative) Blood Type O Positive O Positive Antibody Screen NEGATIVE NEGATIVE Vital Signs Temp Pulse Pulse Resp BP Pulse Ox O2 Del Method 08/01/25 03:09 36.9 C 63 18 97/58 L 99 Room Air 07/31/25 19:30 37 C 84 16 112/70 98 Room Air 07/31/25 17:00 76 20 100/64 98 Room Air 07/31/25 17:00 20 98 07/31/25 15:00 20 98 07/31/25 14:00 18 96 07/31/25 13:00 20 98 07/31/25 12:30 36.7 C 69 20 97/62 L 98 Room Air 07/31/25 12:00 20 96 07/31/25 11:00 16 94 07/31/25 10:00 18 96 07/31/25 09:00 16 93 Intake and Output 07/31/25 08/01/25 08/01/25 22:59 06:59 14:59 Intake Total 937.5 / 1939.5 Output Total 1100 / 1450 Balance 937.5 / 489.5 -1100 / 489.5 Intake: IV 937.5 / 1939.5 Oxytocin 20 Units/Lr 1,002 ml @ 937.5 / 1939.5 125 mls/hr IV .Q8H1M [facility] Rx#: [id number] Output: Urine 1100 / 1100 PE: General: Alert, orientedx3, NAD CVS: S1S2 RRR Lungs; CTAB Abd: soft, NT, ND, BS+, fundus firm, below Umbilicus Incision: Clean, dry, intact Perineum intact, Lochia rubra minimal Ext; NT, no edema AP: 34 yo s/p C Section, pod# 2 VSS Afebrile doing well Continue routine postop care Encourage ambulation, PO intake All questions were answered D/C home tomorrow Results & Data Vital Signs (Past 12 Hours) Vital Signs Temp Pulse Resp BP Pulse Ox O2 Del Method 08/01/25 03:09 36.9 C 63 18 97/58 L 99 Room Air
[2025-08-01] MEDS: POLYETHYLENE (MIRALAX) 17 GM PACK PO SCH (09:37)
[2025-08-02] MEDS: IBUPROFEN 600 MG TAB PO PRN (00:13)
[2025-08-02 00:18] VITALS: RESP 18
[2025-08-02] MEDS: ACETAMINOPHEN 325 MG TAB PO PRN (05:55)
[2025-08-02 06:35] LABS: Hematocrit (blood only) 28.8 % (37.0-47.0); Hemoglobin 10.0 g/dl (12.0-16.0)
[2025-08-02 07:41] VITALS: BP 119/82; PULSE 60; TEMP 98.4; O2SAT 98
--- NOTE | 2025-08-02 08:03 | Obstetrical Progress Note ---
Date of Service August 02, 2025 Assessment & Plan Admission and Anticipated Discharge Date Admission Date: July 30, 2025 Subjective Patient is seen and examined. She feels well, no complaints. Pain is under control with oral meds. Ambulating without dizziness Voiding without difficulty Tolerating regular diet with out N&V Flatus + Bleeding is minimal No fever/ chills/ CP/ SOB/ N&V/ Leg pain Bottle feeding without problems Vital Signs Temp Pulse Resp BP Pulse Ox O2 Del Method 08/02/25 07:39 36.9 C 60 18 119/82 98 Room Air 08/02/25 00:17 Room Air 08/02/25 00:17 36.6 C 67 18 117/74 97 Room Air 08/01/25 17:15 36.8 C 70 20 115/75 98 Room Air Lab Results 07/30/25 07/30/25 08/01/25 Range/Units 09:33 22:39 06:14 WBC 10.56 21.34 H D 14.95 H (4.8-10.8) K/ul RBC 4.00 L 4.04 L 3.11 L (4.20-5.40) M/uL Hgb 12.4 12.7 10.0 L (12.0-16.0) g/dl Hct 35.6 L 36.1 L 28.8 L (37.0-47.0) % MCV 89.0 89.4 92.6 (80.0-100.0) fL MCH 31.0 31.4 32.2 (25.0-34.0) pg MCHC 34.8 35.2 34.7 (32.0-36.0) g/dL RDW Std Deviation 43.7 43.7 47.6 H (36.4-46.3) fL RDW Coeff of Remedios 13.4 13.4 14.1 (11.5-14.5) % Plt Count 230 244 174 (130-400) K/uL MPV 10.8 10.6 11.1 (9.4-12.4) fL Immature Gran % (Auto) 0.3 % Neut % (Auto) 77.8 % Lymph % (Auto) 16.5 % [place] % (Auto) 5.0 % Eos % (Auto) 0.3 % Baso % (Auto) 0.1 % Neut # (Auto) 11.64 H (1.40-6.50) K/uL Lymph # (Auto) 2.46 (1.20-3.40) K/uL [place] # (Auto) 0.75 H (0.11-0.59) K/uL Eos # (Auto) 0.04 (0.00-0.50) K/uL Baso # (Auto) 0.01 (0.00-0.20) K/uL Immature Gran # (Auto) 0.05 (0.01-0.20) K/uL Treponema pallidum Ab Negative Negative (Negative) Blood Type O Positive O Positive Antibody Screen NEGATIVE NEGATIVE 08/02/25 Range/Units 05:45 WBC (4.8-10.8) K/ul RBC (4.20-5.40) M/uL Hgb 10.0 L (12.0-16.0) g/dl Hct 28.8 L (37.0-47.0) % MCV (80.0-100.0) fL MCH (25.0-34.0) pg MCHC (32.0-36.0) g/dL RDW Std Deviation (36.4-46.3) fL RDW Coeff of Remedios (11.5-14.5) % Plt Count (130-400) K/uL MPV (9.4-12.4) fL Immature Gran % (Auto) % Neut % (Auto) % Lymph % (Auto) % [place] % (Auto) % Eos % (Auto) % Baso % (Auto) % Neut # (Auto) (1.40-6.50) K/uL Lymph # (Auto) (1.20-3.40) K/uL [place] # (Auto) (0.11-0.59) K/uL Eos # (Auto) (0.00-0.50) K/uL Baso # (Auto) (0.00-0.20) K/uL Immature Gran # (Auto) (0.01-0.20) K/uL Treponema pallidum Ab (Negative) Blood Type Antibody Screen PE: General: Alert, orientedx3, NAD CVS: S1S2 RRR Lungs; CTAB Abd: soft, NT, ND, BS+, fundus firm, below Umbilicus Incision: Clean, dry, intact Perineum intact, Lochia rubra minimal Ext; NT, no edema AP: 34 yo s/p C Section, pod# 3 VSS Afebrile doing well Continue routine postop care Encourage ambulation, PO intake All questions were answered D/C home, f/u in office Results & Data Vital Signs (Past 12 Hours) Vital Signs Temp Pulse Resp BP Pulse Ox O2 Del Method 08/02/25 07:39 36.9 C 60 18 119/82 98 Room Air 08/02/25 00:17 Room Air 08/02/25 00:17 36.6 C 67 18 117/74 97 Room Air
== END 2025-08-02 09:46 | disposition home or self-care (01) | DRG 787 ==
LOC: 4S1 07:44 → 4E2 07-31 02:47